=== PATIENT | female | born 1980 | race Caucasian/White ===

== ENCOUNTER 2018-06-14 11:12 | Observation (INO) | payer OTHER ==
--- NOTE | 2018-06-14 11:39 | EDPHY ---
H & P Stated Complaint: accidental chemical ingestion Time Seen by Provider: 06/14/18 11:33 HPI/ROS: CHIEF COMPLAINT: Accidental chemical ingestion HISTORY OF PRESENT ILLNESS: 38-year-old female generally healthy arrives via private vehicle after she accidentally ingested 1 mouth full of "Gas Line antifreeze and water remover". She explains that while she was at a gas station with her her had drained the antifreeze line and had poured this product into a cup that the patient confused with a coffee cup. She took 1 drink of this, swallowed it, noted the foul taste. They contacted poison Control recommended going to the ER. This was an accidental ingestion and she is adamant that this was not intentional on she denies self-injurious thoughts or suicidal ideation. Poison Control case # [id number]. She is complaining of epigastric discomfort after drinking this. She denies oropharyngeal irritation, denies dysphagia or odynophagia. Denies dyspnea. Denies cough. REVIEW OF SYSTEMS: 10 systems reviewed and negative with the exception of the elements mentioned in the history of present illness PAST MEDICAL & SURGICAL HISTORY: No pertinent medical or surgical history SOCIAL HISTORY: Nonsmoker. PHYSICAL EXAM (Prior to examination, patient consented to physical exam, hands were washed and my usual and customary physical exam procedures followed) 1) GENERAL: Well-developed, well-nourished, alert and oriented. Appears to be in no acute distress. 2) HEAD: Normocephalic, atraumatic 3) HEENT: Pupils equal, round, reactive to light bilaterally. Sclera anicteric. Nasopharynx, oropharynx, clear, no lesions. Moist Mucous membranes. No irritation. Airway patent. Ears bilaterally with normal tympanic membranes. 4) NECK: Full range of motion, no meningeal signs. 5) LUNGS: Clear auscultation bilaterally, no wheezes, no rhonchi, no retractions. 6) HEART: Regular rate and rhythm, no murmur, no heave, no gallop. 7) ABDOMEN: No guarding, no rebound, no focal tenderness, negative McBurney's, negative Cantor's, negative Rovsing's, negative peritoneal sign, 8) MUSCULOSKELETAL: Moving all extremities, no focal areas of tenderness, no obvious trauma. No peripheral edema or discoloration. 9) BACK: No CVA tenderness, no midline vertebral tenderness, no fluctuance, no step-off, no obvious trauma, no visual or palpable abnormality. 10) SKIN: No rash, no petechiae. 11) Psychiatric: Patient is oriented X 3, there is no agitation. DIFFERENTIAL DIAGNOSIS: In no particular order including but not limited to intentional ingestion, accidental methanol ingestion, acidosis - Personal History Current Tetanus/Diphtheria Vaccine: Unsure Current Tetanus Diphtheria and Acellular Pertussis (TDAP): Unsure - Medical/Surgical History Hx Asthma: No Hx Chronic Respiratory Disease: No Hx Diabetes: No Hx Cardiac Disease: No Hx Renal Disease: No Hx Cirrhosis: No Hx Alcoholism: No Hx HIV/AIDS: No Hx Splenectomy or Spleen Trauma: No Other PMH: tubal ligation, - Social History Smoking Status: Current every day smoker Constitutional: Initial Vital Signs Temperature (C) 36.8 C 06/14/18 11:16 Heart Rate 91 06/14/18 11:16 Respiratory Rate 16 06/14/18 11:16 Blood Pressure 160/105 H 06/14/18 11:16 O2 Sat (%) 95 06/14/18 11:16 O2 Delivery Mode Room Air Allergies/Adverse Reactions: No Known Allergies Allergy (Verified 06/14/18 13:37) Home Medications: Medication Instructions Recorded Acetaminophen [Tylenol 325mg (*)] 325 mg PO DAILY PRN 06/14/18 Medical Decision Making ED Course/Re-evaluation: 12:01 p.m.: I consulted with [facility] case [id number]. Poison Control recommended checking a methanol level which will be approximately 3-4 hour turnaround time from [facility]. They recommend that the patient's methanol level is greater than 20 mg/dL to initiate fomepizole therapy but recommended holding on fomepizole until these levels are returned. They also recommended checking chemistry levels every 4 hr for least 12 hr. Plan will therefore be hospital admission to Dr. Castillo. Care of patient under supervision of secondary supervising physician Dr Medel with whom I discussed case. - Data Points Laboratory Results: Laboratory Results 06/14/18 12:00 06/14/18 12:00 06/14/18 06/14/18 06/14/18 12:00 12:00 12:00 WBC RBC Hgb Hct MCV MCH MCHC RDW Plt Count MPV Neut % (Auto) Lymph % (Auto) [place] % (Auto) Eos % (Auto) Baso % (Auto) Nucleat RBC Rel Count Absolute Neuts (auto) Absolute Lymphs (auto) Absolute Monos (auto) Absolute Eos (auto) Absolute Basos (auto) Absolute Nucleated RBC Immature Gran % Immature Gran # Sodium Potassium Chloride Carbon Dioxide Anion Gap BUN Creatinine Estimated GFR Glucose Serum Osmolality 296 mosmo/kg mosmo/kg (280-297) Calcium Magnesium 2.1 mg/dL mg/dL (1.6-2.3) Total Bilirubin Conjugated Bilirubin Unconjugated Bilirubin AST ALT Alkaline Phosphatase Total Protein Albumin Lipase Beta HCG, Qual Specimen Hemolysis Cancelled Salicylates Acetaminophen Ethylene Glycol <3 mg/dL mg/dL (NODETECT) Propylene Glycol <10 mg/dL mg/dL (NODETECT) Ethyl Alcohol Cancelled Methyl Alcohol, Quant 06/14/18 06/14/18 06/14/18 12:00 12:00 12:00 WBC RBC Hgb Hct MCV MCH MCHC RDW Plt Count MPV Neut % (Auto) Lymph % (Auto) [place] % (Auto) Eos % (Auto) Baso % (Auto) Nucleat RBC Rel Count Absolute Neuts (auto) Absolute Lymphs (auto) Absolute Monos (auto) Absolute Eos (auto) Absolute Basos (auto) Absolute Nucleated RBC Immature Gran % Immature Gran # Sodium Potassium Chloride Carbon Dioxide Anion Gap BUN Creatinine Estimated GFR Glucose Serum Osmolality Calcium Magnesium Total Bilirubin Conjugated Bilirubin Unconjugated Bilirubin AST ALT Alkaline Phosphatase Total Protein Albumin Lipase Beta HCG, Qual NEGATIVE Specimen Hemolysis Salicylates < 1.0 mg/dL L mg/dL (2.0-20.0) Acetaminophen < 10 mcg/mL L mcg/mL (10-30) Ethylene Glycol Propylene Glycol Ethyl Alcohol Methyl Alcohol, Quant 7 HH mg/dL mg/dL (<5) 06/14/18 06/14/18 12:00 12:00 WBC 7.99 10^3/uL 10^3/uL (3.80-9.50) RBC 5.12 10^6/uL 10^6/uL (4.18-5.33) Hgb 16.1 g/dL g/dL (12.6-16.3) Hct 47.0 % % (38.0-47.0) MCV 91.8 fL fL (81.5-99.8) MCH 31.4 pg pg (27.9-34.1) MCHC 34.3 g/dL g/dL (32.4-36.7) RDW 13.2 % % (11.5-15.2) Plt Count 264 10^3/uL 10^3/uL (150-400) MPV 9.5 fL fL (8.7-11.7) Neut % (Auto) 63.4 % % (39.3-74.2) Lymph % (Auto) 24.9 % % (15.0-45.0) [place] % (Auto) 8.3 % % (4.5-13.0) Eos % (Auto) 2.9 % % (0.6-7.6) Baso % (Auto) 0.4 % % (0.3-1.7) Nucleat RBC Rel Count 0.0 % % (0.0-0.2) Absolute Neuts (auto) 5.07 10^3/uL 10^3/uL (1.70-6.50) Absolute Lymphs (auto) 1.99 10^3/uL 10^3/uL (1.00-3.00) Absolute Monos (auto) 0.66 10^3/uL 10^3/uL (0.30-0.80) Absolute Eos (auto) 0.23 10^3/uL 10^3/uL (0.03-0.40) Absolute Basos (auto) 0.03 10^3/uL 10^3/uL (0.02-0.10) Absolute Nucleated RBC 0.00 10^3/uL 10^3/uL (0-0.01) Immature Gran % 0.1 % % (0.0-1.1) Immature Gran # 0.01 10^3/uL 10^3/uL (0.00-0.10) Sodium 137 mEq/L mEq/L (135-145) Potassium 4.0 mEq/L mEq/L (3.5-5.2) Chloride 103 mEq/L mEq/L (97-110) Carbon Dioxide 24 mEq/l mEq/l (22-31) Anion Gap 10 mEq/L mEq/L (6-14) BUN 13 mg/dL mg/dL (7-23) Creatinine 0.6 mg/dL mg/dL (0.6-1.0) Estimated GFR > 60 Glucose 96 mg/dL mg/dL (70-100) Serum Osmolality Calcium 9.2 mg/dL mg/dL (8.5-10.4) Magnesium Total Bilirubin 0.7 mg/dL mg/dL (0.1-1.4) Conjugated Bilirubin 0.3 mg/dL mg/dL (0.0-0.5) Unconjugated Bilirubin 0.4 mg/dL mg/dL (0.0-1.1) AST 19 IU/L IU/L (14-46) ALT 31 IU/L IU/L (9-52) Alkaline Phosphatase 99 IU/L IU/L (38-126) Total Protein 7.1 g/dL g/dL (6.3-8.2) Albumin 4.4 g/dL g/dL (3.5-5.0) Lipase 80 IU/L IU/L (23-300) Beta HCG, Qual Specimen Hemolysis Salicylates Acetaminophen Ethylene Glycol Propylene Glycol Ethyl Alcohol < 10 mg/dL mg/dL (0-10) Methyl Alcohol, Quant Medications Given: Discontinued Medications Al Hydroxide/Mg Hydroxide (Maalox Susp) 30 ml PO ONCE ONE Stop: 06/14/18 12:10 Last Admin: 06/14/18 12:54 Dose: 30 ml Hyoscyamine Sulfate (Levsin, Hyomax-Sl) 0.25 mg PO ONCE ONE Stop: 06/14/18 12:10 Last Admin: 06/14/18 14:09 Dose: Not Given Sodium Chloride (Ns) 1,000 mls @ 3,000 mls/hr IV ONCE ONE Stop: 06/14/18 13:58 Last Admin: 06/14/18 14:09 Dose: 1,000 mls Lidocaine (Lidocaine 2% Viscous) 15 ml PO ONCE ONE Stop: 06/14/18 12:10 Last Admin: 06/14/18 12:54 Dose: 15 ml Ondansetron HCl (Zofran) 4 mg IVP ONCE ONE Stop: 06/14/18 13:04 Last Admin: 06/14/18 13:06 Dose: 4 mg Departure - Departure Disposition: [facility] Acute Clinical Impression: Accidental poisoning by methanol Qualifiers: Encounter type: initial encounter Qualified Code(s): T51.1X1A - Toxic effect of methanol, accidental (unintentional), initial encounter Condition: Fair
[2018-06-14] MEDS ORDERED: MAG HYDROX/AL HYDROX/SIMETH 30 ML UDCUP PO ONE (12:09)
[2018-06-14] MEDS ORDERED: LIDOCAINE 2% VISCOUS 15 ML UDCUP PO ONE (12:09)
[2018-06-14] MEDS ORDERED: HYOSCYAMINE SULFATE 0.125 MG TAB PO ONE (12:09)
[2018-06-14 12:13] LABS: PLATELET COUNT 264 10^3/uL (150-400)
[2018-06-14] MEDS ORDERED: ONDANSETRON 4 MG/2 ML VIAL IVP ONE (13:03)
[2018-06-14] MEDS ORDERED: ONDANSETRON 4 MG/2 ML VIAL ONE (13:03)
[2018-06-14] MEDS ORDERED: NS 1,000 ML IV ONE (13:39)
--- NOTE | 2018-06-14 13:43 | PDGENHP ---
History and Physical - Chief Complaint ingestion - History of Present Illness 38-year-old female admitted after accidentally ingested 1 mouth full of "Gas Line antifreeze and water remover". She explains that while she was at a gas station with her her had drained the antifreeze line and had poured this product into a cup that the patient confused with a coffee cup. She took 1 drink of this, swallowed it, noted the foul taste. They contacted poison Control recommended going to the ER. This was an accidental ingestion and she is adamant that this was not intentional on she denies self-injurious thoughts or suicidal ideation. Poison Control case # [id number]. She was complaining of epigastric discomfort after drinking this but feels better now. She denies oropharyngeal irritation, denies dysphagia or odynophagia. Denies dyspnea. Denies cough. The ingestion was likely a mix of Ethylene Glycol and Methanol Labs have been obtained and are unremarkable, no e/o acidosis, impaired kidney function, electrolyte abnormalities No vision deficits No neurological deficits Additional labs are pending PAST MEDICAL & SURGICAL HISTORY: tubal ligation. Denies cardiac hx, pulm hx, endocrine hx, psych history SOCIAL HISTORY: Nonsmoker. FMx: ID History Information - Allergies/Home Medication List Allergies/Adverse Reactions: No Known Allergies Allergy (Verified 06/14/18 13:37) Home Medications: Acetaminophen [Tylenol 325mg (*)] 325 mg PO DAILY PRN 06/14/18 [Last Taken Unknown] I have personally reviewed and updated: medical history, social history - Social History Smoking Status: Current every day smoker Review of Systems Review of Systems: ROS: 10pt was reviewed & negative except for what was stated in HPI & below Physical Exam Physical Exam: Temp Pulse Resp BP Pulse Ox 36.8 C 91 16 160/105 H 95 06/14/18 11:16 06/14/18 11:16 06/14/18 11:16 06/14/18 11:16 06/14/18 11:16 Constitutional: no apparent distress, not in pain Eyes: PERRL, EOMI Ears, Nose, Mouth, Throat: moist mucous membranes, hearing normal Cardiovascular: regular rate and rhythym, No edema Respiratory: no respiratory distress, no rales or rhonchi, clear to auscultation Gastrointestinal: normoactive bowel sounds, soft, non-tender abdomen Skin: warm Musculoskeletal: full muscle strength Neurologic: AAOx3 Psychiatric: interacting appropriately, not anxious, not encephalopathic Lymph, Heme, Immunologic: lymphadenopathy Lab Data & Imaging Review 06/14/18 12:00 06/14/18 12:00 WBC 7.99 10^3/uL (3.80-9.50) 06/14/18 12:00 RBC 5.12 10^6/uL (4.18-5.33) 06/14/18 12:00 Hgb 16.1 g/dL (12.6-16.3) 06/14/18 12:00 POC Hgb 16.7 gm/dL (12.6-16.3) H 06/14/18 12:09 Hct 47.0 % (38.0-47.0) 06/14/18 12:00 POC Hct 49 % (38-47) H 06/14/18 12:09 MCV 91.8 fL (81.5-99.8) 06/14/18 12:00 MCH 31.4 pg (27.9-34.1) 06/14/18 12:00 MCHC 34.3 g/dL (32.4-36.7) 06/14/18 12:00 RDW 13.2 % (11.5-15.2) 06/14/18 12:00 Plt Count 264 10^3/uL (150-400) 06/14/18 12:00 MPV 9.5 fL (8.7-11.7) 06/14/18 12:00 Neut % (Auto) 63.4 % (39.3-74.2) 06/14/18 12:00 Lymph % (Auto) 24.9 % (15.0-45.0) 06/14/18 12:00 [place] % (Auto) 8.3 % (4.5-13.0) 06/14/18 12:00 Eos % (Auto) 2.9 % (0.6-7.6) 06/14/18 12:00 Baso % (Auto) 0.4 % (0.3-1.7) 06/14/18 12:00 Nucleat RBC Rel Count 0.0 % (0.0-0.2) 06/14/18 12:00 Absolute Neuts (auto) 5.07 10^3/uL (1.70-6.50) 06/14/18 12:00 Absolute Lymphs (auto) 1.99 10^3/uL (1.00-3.00) 06/14/18 12:00 Absolute Monos (auto) 0.66 10^3/uL (0.30-0.80) 06/14/18 12:00 Absolute Eos (auto) 0.23 10^3/uL (0.03-0.40) 06/14/18 12:00 Absolute Basos (auto) 0.03 10^3/uL (0.02-0.10) 06/14/18 12:00 Absolute Nucleated RBC 0.00 10^3/uL (0-0.01) 06/14/18 12:00 Immature Gran % 0.1 % (0.0-1.1) 06/14/18 12:00 Immature Gran # 0.01 10^3/uL (0.00-0.10) 06/14/18 12:00 POC Sodium 139 mEq/L (135-145) 06/14/18 12:09 Sodium 137 mEq/L (135-145) 06/14/18 12:00 POC Potassium 3.7 mEq/L (3.3-5.0) 06/14/18 12:09 Potassium 4.0 mEq/L (3.5-5.2) 06/14/18 12:00 POC Chloride 102 mEq/L (97-110) 06/14/18 12:09 Chloride 103 mEq/L (97-110) 06/14/18 12:00 Carbon Dioxide 24 mEq/l (22-31) 06/14/18 12:00 POC Total CO2 25 mEq/L (22-31) 06/14/18 12:09 Anion Gap 10 mEq/L (6-14) 06/14/18 12:00 POC BUN 12 mg/dL (7-23) 06/14/18 12:09 BUN 13 mg/dL (7-23) 06/14/18 12:00 Creatinine 0.6 mg/dL (0.6-1.0) 06/14/18 12:00 POC Creatinine 0.6 mg/dL (0.6-1.0) 06/14/18 12:09 Estimated GFR > 60 06/14/18 12:00 Glucose 96 mg/dL (70-100) 06/14/18 12:00 POC Glucose 94 mg/dL (70-100) 06/14/18 12:09 Serum Osmolality 296 mosmo/kg (280-297) 06/14/18 12:00 Calcium 9.2 mg/dL (8.5-10.4) 06/14/18 12:00 Total Bilirubin 0.7 mg/dL (0.1-1.4) 06/14/18 12:00 Conjugated Bilirubin 0.3 mg/dL (0.0-0.5) 06/14/18 12:00 Unconjugated Bilirubin 0.4 mg/dL (0.0-1.1) 06/14/18 12:00 AST 19 IU/L (14-46) 06/14/18 12:00 ALT 31 IU/L (9-52) 06/14/18 12:00 Alkaline Phosphatase 99 IU/L (38-126) 06/14/18 12:00 Total Protein 7.1 g/dL (6.3-8.2) 06/14/18 12:00 Albumin 4.4 g/dL (3.5-5.0) 06/14/18 12:00 Lipase 80 IU/L (23-300) 06/14/18 12:00 Beta HCG, Qual NEGATIVE 06/14/18 12:00 Specimen Hemolysis Cancelled 06/14/18 12:00 Salicylates < 1.0 mg/dL (2.0-20.0) L 06/14/18 12:00 Acetaminophen < 10 mcg/mL (10-30) L 06/14/18 12:00 Ethyl Alcohol < 10 mg/dL (0-10) 06/14/18 12:00 Assessment & Plan Assessment: #Accidental ingestion of Methanol and Ethylene Glycol #HTN #Abd Pain, better after GI cocktail #Nause: none currently Plan: labs have been obtained. She does not have any acidosis or electrolyte abnormality. There is no visual deficits. There is no osmolar gap Her ingestion appears to have been small Ethylene Glycol and Methanol levels have been sent Per poison control ([id number]) they recommended holding Fomepizole for ADH inhibition until levels are back and to start if patient's methanol level is greater than 20 mg/dL No indication for Sodium Bicarb or HD at this time Will provide IVF check Mg Baseline EKG admission to SDU with close monitoring, serial labs (next at 1500) total critical care time including d/w ER is 60 minutes
[2018-06-14] MEDS ORDERED: ONDANSETRON DISINTEGRATING 4 MG TAB PO PRN (13:52)
[2018-06-14] MEDS ORDERED: ONDANSETRON 4 MG/2 ML VIAL IVP PRN (13:52)
[2018-06-14] MEDS: OXYCODONE/APAP 5/325 TAB PO PRN (18:15)
[2018-06-14] MEDS: ACETAMINOPHEN 325 MG TAB PO PRN (22:20)
[2018-06-14 22:50] VITALS: BP 129/76
[2018-06-15] MEDS: OXYCODONE/APAP 5/325 TAB PO PRN (00:33)
[2018-06-15 06:15] LABS: PLATELET COUNT 219 10^3/uL (150-400)
[2018-06-15] MEDS: ACETAMINOPHEN 325 MG TAB PO PRN (08:34)
[2018-06-15] MEDS ORDERED: MAGNESIUM SULF 2 GM/WATER 50 ML IV ONE (08:47)
--- NOTE | 2018-06-15 11:58 | PDDCSUM ---
Discharge Summary Discharge Summary: 38 YO female admitted with accidental ingestion of substance containing methanol and ethylene glycol. Labs were monitored and unremarkable. She had no acidosis, no osmolar gap. Methanol was slightly elevated but below the threshold to start Fomepizole per poison controls recommendation. She was monitored overnight in the SDU. No events were noted. She is back to baseline and ready for d/c she is encouraged to f/u with her PCP next week DDX #Accidental ingestion of Methanol and Ethylene Glycol -slight elevation of Methanol, no visual deficits -unremarkable Ethylene Glycol levels #HTN #Abd Pain, better after GI cocktail #Nause: none currently Exam: NAD AAOX3 RRR CTA B S/NT/ND MEDS: SEE MED REC TOTAL TIME SPENT ON D/C IS 35 MINS
--- NOTE | 2018-06-20 11:19 | CPEKG ---
Test Reason : OPEN Blood Pressure : / mmHG Vent. Rate : 081 BPM Atrial Rate : 080 BPM P-R Int : 192 ms QRS Dur : 098 ms QT Int : 422 ms P-R-T Axes : 064 -85 065 degrees QTc Int : 490 ms Sinus rhythm LAE, consider biatrial enlargement Left anterior fascicular block Borderline prolonged QT interval Confirmed by Matthias Rodriguez ([id number] on 06/20/2018 11:19:04 AM Referred By: Dhiraj Castillo Confirmed By:Matthias Rodriguez
== END 2018-06-15 09:56 | disposition home or self-care (01) ==
LOC: F2N 16:39
PROVIDERS: ADMIT Family Medicine; ATTEND Family Medicine
DX: T51.1X1A Toxic effect of methanol, accidental (unintentional), initial encounter (principal); T52.8X1A Toxic effect of other organic solvents, accidental (unintentional), initial encounter; I10 Essential (primary) hypertension; F17.210 Nicotine dependence, cigarettes, uncomplicated
CPT/HCPCS: 80307; 82435-PO; 82565-PO; 82693-90; 82947-PO; 84132-PO; 84295-PO; 84520-PO; 84600-90; 85014-ER; 96374; G0378; G0480; J2405

== ENCOUNTER 2018-09-29 12:03 | Emergency (ER) | payer MEDICAID | END 2018-09-29 13:15 | disposition home or self-care (01) | LOC: CED 12:03 ==